=== PATIENT | male | born 1965 | race African-American/Black ===

== ENCOUNTER 2017-02-15 19:38 | Emergency (ER) | payer MEDICARE, OTHER | END 2017-02-15 20:32 | disposition home or self-care (01) | LOC: ER 19:38 | DX: M77.51 Other enthesopathy of right foot and ankle (principal); I10 Essential (primary) hypertension; I25.2 Old myocardial infarction; Z95.5 Presence of coronary angioplasty implant and graft; Z79.899 Other long term (current) drug therapy ==